=== PATIENT | female | born 1985 | race Two or more races ===

== ENCOUNTER 2019-08-18 15:35 | Emergency (ER) | payer MEDICAID ==
[~2019-08-18] VITALS: Ht 162.6 cm; Wt 86.2 kg
[2019-08-18 15:47] VITALS: Ht 162.6 cm; Wt 86.2 kg
[2019-08-18 18:00] VITALS: BP 135/88
== END 2019-08-18 18:00 | disposition home or self-care (01) ==
LOC: ED 15:35
DX: J02.9 Acute pharyngitis, unspecified (principal)

== ENCOUNTER 2019-11-10 08:47 | Emergency (ER) | payer MEDICAID ==
[~2019-11-10] VITALS: Ht 162.6 cm; Wt 85.3 kg
[2019-11-10 08:49] VITALS: BP 126/88; Ht 162.6 cm; Wt 85.3 kg
== END 2019-11-10 09:51 | disposition home or self-care (01) ==
LOC: ED 08:47
DX: S83.91XA Sprain of unspecified site of right knee, initial encounter (principal); Z98.890 Other specified postprocedural states; X58.XXXA Exposure to other specified factors, initial encounter; Y93.89 Activity, other specified; Y92.89 Other specified places as the place of occurrence of the external cause; Y99.8 Other external cause status